=== PATIENT | female | born 1950 | race Caucasian/White ===

== ENCOUNTER 2018-05-28 14:31 | Inpatient (IN) | payer MEDICARE, BC ==
[~2018-05-28] VITALS: Ht 160 cm; Wt 95.3 kg
--- NOTE | ~2018-05-28 | RHP ---
PATIENT: ROSIBEL LUONG MEDICAL RECORD: [id number] ACCOUNT: [id number] LOCATION:[facility]1113 : 51 ADMISSION DATE: 05/28/18 REHABILITATION HISTORY AND PHYSICAL EXAMINATION POST ADMISSION PHYSICIAN EXAMINATION DATE OF ADMISSION: 05/28/2018 ADMITTING DIAGNOSIS: Critical illness neuropathy. HISTORY OF PRESENT ILLNESS: The patient is admitted to inpatient rehab with critical illness neuropathy. She is a morbidly obese 67-year-old female with a lengthy illness that began worsening with complaint of shortness of breath in February, requiring multiple acute hospital stays. Over a period of time she was in the SNF due to her weakness and inability to perform ADLs. She has progressed slowly with therapies and has believed that she is needing acute inpatient rehabilitation to regain her prior level of functioning. She is on home O2 at 2.5 to 3 liters via nasal cannula. She currently has a Bunn catheter and has not been attempted to be discontinued since her hospitalization in March per her . She was continent of bowel and bladder prior to this illness. She has new-onset bowel incontinence. She went out to the acute hospital last week with chest pain and pressure, but no findings. She is currently having a lot of pain in both her back and knees. Pain management will be addressed along with bowel and bladder program, all with her diabetes, her O2 needs, swelling, monitor her self-care deficits and mobility. She and her state that she normally stood up on her legs on 2 different days since her acute hospitalization back in February. Their goal was to get her back to where she can ambulate with a rolling walker and she was able to do previously, is very motivated and determined to return home with her . She is currently min to total assist for her ADLs and total assist for mobility. She has proximal muscle weakness. BARRIERS TO DISCHARGE: Include total assist. She is having self-care deficits. Currently on a Bunn catheter, new-onset bowel incontinence, increased pain and need for medical management. She and her plan for her to return home with close to her prior level of functioning as possible. COMORBIDITIES: In this patient include critical illness neuropathy, morbid obesity, encephalopathy, COPD, weakness, cognitive communication deficits, paroxysmal atrial fib, diabetes, hypertension, cerebral infarction, psychogenic nonepileptic seizure, asthma, hyperlipidemia, chest pain, histrionic personality disorder, anxiety and depression. PAST MEDICAL HISTORY: Significant for AFib, diabetes, hypertension, questionable CHF, COPD, CVA, asthma, chronic respiratory failure, hyperlipidemia, and anxiety. PAST SURGICAL HISTORY: Includes esophageal surgery, cholecystectomy and appendectomy. ALLERGIES: PENICILLIN, POTASSIUM, IODINE, CODEINE, DANDELION ROOT, DOXYCYCLINE, GARLIC, GENTAMICIN, IBUPROFEN, IODINE, MOLASSES, PEACH FLAVOR, PENICILLIN, PLAVIX, POTASSIUM, PROMETHAZINE, TETRACYCLINE, ULTRAM, WINTERGREEN, CLAMS, CORN SYRUP, GREEN PEPPERS, MUSHROOMS, ANY TYPE OF NECTARINE, ASPARTAME, BEEF, BETADINE, BLACK PEPPER BEADS AND CECLOR. HISTORY AND PHYSICAL [id number] ROSIBEL LUONG CURRENT MEDICATIONS: Include Mevacor 20 mg daily, vitamin D daily, hydrochlorothiazide 12.5 mg daily, lisinopril 10 mg daily, citalopram 20 mg daily, Senokot 1 tab daily, prednisone 5 mg daily, Multaq 400 mg daily, Mag-Ox 400 mg daily, Lantus 20 units daily, potassium 10 mEq b.i.d., Zofran 4 mg every 6 hours p.r.n., Ventolin 2 puffs every 6 hours p.r.n., Tylenol 500 mg every 6 hours, Remeron 15 mg at bedtime, Singulair 10 mg at bedtime and she is on a low-resistant sliding scale. HABITS: No alcohol or tobacco use. FAMILY HISTORY: Noncontributory. SOCIAL HISTORY: The patient hopes to return back home with her and get back to her prior level of functioning. REVIEW OF SYSTEMS: GENERAL: Does complain of weakness and fatigue. HEENT: Denies cold, cough, or congestion. CARDIOVASCULAR: Denies chest pain. PHYSICAL EXAMINATION: VITAL SIGNS: Stable, afebrile. GENERAL: A morbidly obese female, in no distress upon exam. HEENT: Normocephalic and atraumatic. Mucosa moist. NECK: Supple. No lymphadenopathy. LUNGS: Clear in upper aguirre. She does have decreased breath sounds in the bases. CARDIOVASCULAR: Has an irregular rate and rhythm. ABDOMEN: Benign. EXTREMITIES: No clubbing or cyanosis. NEUROLOGIC: She is noted to have some deficits. LABORATORY DATA: Her white count is 12.8, H&H of 13 and 40. Her platelet count is noted to be 262. Her MCV is 103.1. Her sodium is 136, potassium 4.6, BUN and creatinine of 21 and 0.7, blood sugar is noted to be 96. Her UA was cloudy. She has 2+ blood, positive nitrite and positive leukocyte esterase. Her urine culture has been set up. ASSESSMENT: This is a 67-year-old female patient admitted to rehab with a working diagnosis of critical illness neuropathy. The patient has potential to make improvement. We instituted the following multidisciplinary therapies include, but not limited to physical, occupational, respiratory, speech, nutritional services, prosthetics and orthotics. Given her complex medical condition and risk for more complications, rehabilitation services cannot be provided at a low level of care such as a skilled nurse facility. PLAN: 1. Admit to [facility] rehab for intensive inpatient therapy to include the following disciplines: A. Physical therapy to improve gait, all transfer skills and bed mobility to a modified independent level. B. Occupational therapy to a modified independent level. C. Case management to assist with discharge planning and placement options. D. Nutrition to assist with nutritional needs. E. Rehabilitation nursing to assist in monitoring the patient's underlying HISTORY AND PHYSICAL [id number] ROSIBEL LUONG medical conditions and to assist with any type of bowel or bladder management. 2. The patient's current medication and medical care will be continued. 3. The patient will be placed on standard fall precautions. 4. I am going to go ahead and treat her urine. 5. We will get updates frequently from our care team and see how she progresses. TRANSINT:[id number] Voice Confirmation ID: [id number] DOCUMENT ID: [id number] MIKKI notes whether there has been none or any medical/functional change since admission: - No change since prescreen. MIKKI attests patient continues to be appropriate for IRF: - Continues to be appropriate. PETRA WITT MD at 1951 CC: [id number] DICTATION DATE: 05/29/18 0856 KOSHER DIETARY SERVICE SUPERVISOR: 05/29/18 1016 ADM IN [facility] [address] [id number]
[2018-05-28 15:05] VITALS: BP 116/53; BMI 37.2
[2018-05-28] MEDS ORDERED: LOVASTATIN20 MG PO (16:34)
[2018-05-28] MEDS ORDERED: SINGULAIR10 MG PO (16:47)
[2018-05-28] MEDS ORDERED: REMERON15 MG PO (16:48)
[2018-05-28] MEDS ORDERED: CARDIZEM CD240 MG PO (16:50)
[2018-05-28] MEDS ORDERED: ZESTORETIC 10/11 TAB PO (16:51)
[2018-05-28] MEDS ORDERED: MAG-OX 400 MG400 MG (16:52)
[2018-05-28] MEDS ORDERED: MULTAQ400 MG PO (16:52)
[2018-05-28] MEDS ORDERED: PREDNISONE5 MG PO (16:53)
[2018-05-28] MEDS ORDERED: SENOKOT-S TABLE1 TAB PO (16:55)
[2018-05-28] MEDS ORDERED: VITAMIN D5000 UNIT (16:57)
[2018-05-28] MEDS ORDERED: ACETAMINOPHEN500 M1 PO (16:58)
[2018-05-28] MEDS ORDERED: PROAIR HFA8.5 GM INH (16:59)
[2018-05-28] MEDS ORDERED: ZOFRAN4 MG PO (17:00)
[2018-05-28] MEDS ORDERED: K-TAB10 MEQ (17:00)
[2018-05-28] MEDS ORDERED: CELEXA20 MG PO (17:01)
[2018-05-28] MEDS ORDERED: LANTUS SOL100 UNIT/1 SC (17:05)
[2018-05-28] MEDS ORDERED: NOVOLIN R100 U/ML (17:06)
[2018-05-28 19:00] VITALS: BP 124/55
[2018-05-29 01:40] VITALS: BP 165/76
[2018-05-29 02:56] LABS: APPEARANCE CLOUDY (CLEAR); BILIRUBIN NEGATIVE (NEGATIVE); COLOR YELLOW (YELLOW); GLUCOSE NEGATIVE (NEGATIVE); KETONE NEGATIVE (NEGATIVE); NITRITE POSITIVE (NEGATIVE); PROTEIN TRACE mg/dL (NEGATIVE); SPECIFIC GRAVITY 1.015 (1.005-1.020); UROBILINOGEN NORMAL (NORMAL)
[2018-05-29 02:57] LABS: BACTERIA MANY /hpf (NONE SEEN); EPITHELIAL CELLS RARE /hpf (0-5); WHITE CELLS - URINE >50 /hpf (0-5)
[2018-05-29 07:13] LABS: CALC OSMOLALITY 279 mosm/kg (275-300); CALCIUM 9.4 mg/dL (8.5-10.1); CARBON DIOXIDE 31.2 mmol/L (21.0-32.0); CHLORIDE - SERUM 100 mmol/L (98-107); CREATININE - SERUM 0.7 mg/dL (0.6-1.3); GLUCOSE 196 mg/dL (74-106); POTASSIUM - SERUM 4.6 mmol/L (3.5-5.1); PRO BNP 299 pg/mL (0-125); SODIUM 136 mmol/L (136-145); UREA NITROGEN 21 mg/dL (7-18); eGFR NON AFRICAN AMERICAN 89 mL/min (90-120)
[2018-05-29 07:28] LABS: HEMATOCRIT 40.4 % (36.0-48.0); HEMOGLOBIN 13.4 g/dL (12-16); LYMPHOCYTES 14.8 % (15-50); MCH 34.2 pg (26.0-34.0); MCHC 33.2 g/dL (31.0-37.0); MCV 103.1 fL (80.0-100.0); MEAN PLATELET VOLUME 8.6 fL (7.4-10.4); NEUTROPHILS 76.2 % (40-80); PLATELET COUNT 262 10x3/uL (130-400); RBC 3.92 10x6/uL (4.00-5.40); RDW 14.9 % (11.5-14.5); WBC 12.8 10x3/uL (4.8-10.8)
[2018-05-29 08:00] VITALS: BP 141/59
[2018-05-29 13:15] VITALS: Ht 160 cm; Wt 95.3 kg
[2018-05-29 19:00] VITALS: BP 113/59
[2018-05-30 11:22] VITALS: BP 127/58
[2018-05-30 22:35] VITALS: BP 124/78
[2018-05-31 15:55] VITALS: BP 163/77
[2018-05-31 20:27] VITALS: BP 138/77
[2018-06-01 06:24] LABS: BASOPHILS 0.3 % (0-2); EOSINOPHILS 4.2 % (0-7); HEMATOCRIT 44.6 % (36.0-48.0); HEMOGLOBIN 14.2 g/dL (12-16); IMMATURE GRANULOCYTES 0.4 % (0-5); LYMPHOCYTES 16.4 % (15-50); MCHC 31.8 g/dL (31.0-37.0); MCV 106.7 fL (80.0-100.0); MEAN PLATELET VOLUME 9.3 fL (7.4-10.4); NEUTROPHILS 68.7 % (40-80); PLATELET COUNT 266 10x3/uL (130-400); RBC 4.18 10x6/uL (4.00-5.40); RDW 15.2 % (11.5-14.5); WBC 11.9 10x3/uL (4.8-10.8)
[2018-06-01 06:34] LABS: CALC OSMOLALITY 288 mosm/kg (275-300); CALCIUM 9.1 mg/dL (8.5-10.1); CARBON DIOXIDE 34.4 mmol/L (21.0-32.0); CHLORIDE - SERUM 101 mmol/L (98-107); CREATININE - SERUM 0.8 mg/dL (0.6-1.3); GLUCOSE 202 mg/dL (74-106); POTASSIUM - SERUM 5.1 mmol/L (3.5-5.1); SODIUM 139 mmol/L (136-145); UREA NITROGEN 26 mg/dL (7-18); eGFR NON AFRICAN AMERICAN 76 mL/min (90-120)
[2018-06-01 07:48] VITALS: BP 154/80
[2018-06-01 19:00] VITALS: BP 119/72
[2018-06-02 08:57] VITALS: BP 155/69
[2018-06-02 19:00] VITALS: BP 115/61
[2018-06-03 08:00] VITALS: BP 155/67
== END 2018-06-03 17:21 | disposition short-term general hospital (02) | DRG 73 ==
LOC: D.REHAB 14:31
PROVIDERS: Emergency Medicine
DX: G62.81 Critical illness polyneuropathy (principal); G93.40 Encephalopathy, unspecified; Z66 Do not resuscitate; I63.9 Cerebral infarction, unspecified; E66.01 Morbid (severe) obesity due to excess calories; J44.9 Chronic obstructive pulmonary disease, unspecified; R53.1 Weakness; I48.0 Paroxysmal atrial fibrillation; E11.9 Type 2 diabetes mellitus without complications; I10 Essential (primary) hypertension; E78.5 Hyperlipidemia, unspecified; F41.8 Other specified anxiety disorders; R41.841 Cognitive communication deficit; R56.9 Unspecified convulsions; F60.4 Histrionic personality disorder

== ENCOUNTER 2018-06-03 16:06 | Inpatient (IN) | payer MEDICARE, BC ==
[~2018-06-03] VITALS: Ht 160 cm; Wt 98.2 kg
--- NOTE | ~2018-06-03 | PSY ---
PATIENT NAME:ROSIBEL LUONG MEDICAL RECORD: [id number] : 52 LOCATION:[facility] ADMISSION DATE: 06/03/18 ACCOUNT: [id number] PSYCHIATRIC EVALUATION DATE OF EVALUATION: 06/04/18 IDENTIFYING DATA: The patient is 67 years old and she is admitted to the hospital on a voluntary basis. CHIEF COMPLAINT: Suicidal statements. HISTORY OF PRESENT ILLNESS: The patient was admitted to the rehab unit about a week ago. She was there because of neuropathy and morbid obesity. She subsequently began making statements that she wanted to kill herself. When I went to see her yesterday on the rehab unit, which is just next door to the psychiatric unit, the nurse senior online marketing manager went into the room with me and her was there and she could not be aroused. She has not been given anything. She had been awake and talkative earlier and it was suspected that this was some type of behavioral thing she was doing. Rehab said they could not keep her on their unit because she made suicidal statements. For that reason, I had no alternative, but to admit her to the psychiatric unit. Today, she tells me that this is just a big misunderstanding that what she said about hurting herself was just out of frustration and that she really did not mean it. She endorses a lot of depressive symptoms, but says she wants to go home. She cannot go home because she cannot care for herself. She cannot go to rehab because she did not participate in therapy there for a week and she does not have any criteria to go to an inpatient hospital stay. I have told her I will have to refer her to a chcf and she said she is fine with that. PAST MEDICAL HISTORY: Significant for morbid obesity. She also has a history of diabetes, neuropathy associated with the diabetes, hypertension and congestive heart failure. PAST PSYCHIATRIC HISTORY: Denied by the patient. FAMILY PSYCHIATRIC HISTORY: Denied by the patient. ALLERGIES: EXTREMELY LONG WITH A COUPLE OF DOZEN ITEMS LISTED. I WILL REFER YOU TO THE MEDICAL RECORD, but PENICILLIN AND CODEINE ALONG WITH IODINE ARE THREE PRINCIPAL ITEMS. I STRONGLY SUSPECT THAT NOT ALL OF THESE ARE TRUE ALLERGIES AND PROBABLY MORE RELATED TO POOR TOLERANCE, BUT THAT IS NOT AN ISSUE, I CAN SORT OUT AT THIS TIME. CURRENT MEDICATIONS: Include albuterol, lisinopril, Celexa, Multaq, Cardizem, Zofran, Singulair, Tylenol. SOCIAL HISTORY: The patient is . She lives in [place] and is unemployed. She does have adult children. MENTAL STATUS EXAMINATION: The patient is awake, alert and oriented to person, place and somewhat to time and situation. Her mood is depressed. Her affect is constricted. Thought processes are circumstantial. Memory, concentration, and abstraction abilities are mildly impaired. She denies any active intent to harm herself or others. She denies any overt psychotic symptoms. ASSETS: Stable living environment. LIABILITIES: Limited insight. DIAGNOSTIC IMPRESSION: AXIS I: Major depression, moderate without psychotic features. AXIS II: Deferred. AXIS III: Diabetes, hypertension, obesity, neuropathy, congestive heart failure. AXIS IV: Moderate stressors. AXIS V: Global assessment of functioning is 40. PLAN: At this time, the patient is going to be treated for depression and I will assist her in being placed in a chcf. There is no doubt she made suicidal statements yesterday, it was made to several staff members and it is well documented. It will take some time to get her into the chcf and in the interim I am going to observe her for safety and we will treat her with antidepressant medications and other medications as circumstances may dictate. TRANSINT:[id number] Voice Confirmation ID: [id number] DOCUMENT ID: [id number] CANDIE KING MD at 1435 CC: [id number] DICTATION DATE: 06/04/18 1410 SAFETY REPRESENTATIVE: 06/04/18 1428 DIS IN 06/05/[id number] [place] [address]
--- NOTE | ~2018-06-03 | DS ---
PATIENT:ROSIBEL LUONG :52 MEDICAL RECORD: [id number] DISCHARGE SUMMARY ADMISSION DATE: 06/03/18 DISCHARGE DATE: 06/05/18 IDENTIFYING DATA: The patient is 67 years old and she was admitted to the hospital on a voluntary basis because of suicidal statements. The patient is morbidly obese and has neuropathy. She was a patient on the rehab unit, next door to the behavioral unit, and began making suicidal statements. She would not cooperate with an evaluation when I was consulted on her, so she was transferred to the behavioral unit. She immediately began explaining away what she had said and denying the accuracy of what was said and documented by the nursing staff. She was observed for suicidal thoughts. HOSPITAL COURSE: The patient was admitted to the hospital and fully evaluated from both medical, psychological, and social standpoint. She was treated with both memory enhancing and mood stabilizing medications and observed briefly and found not to be in acute danger. At her request, she was discharged from the hospital. DISCHARGE DIAGNOSES: AXIS I: Major depression, moderate, without psychotic features. AXIS II: Cluster B personality traits. AXIS III: Diabetes, hypertension, obesity, neuropathy, and congestive heart failure. AXIS IV: Moderate stressors. AXIS V: Global assessment of functioning is 45. PLAN: At the time of discharge, the patient was not acutely dangerous to herself or others. She had a depressed mood, but was taking medications for depression. She was scheduled for follow up with the [facility] in her hometown. Her long-term prognosis is guarded. TRANSINT:[id number] Voice Confirmation ID: [id number] DOCUMENT ID: [id number] CANDIE KING MD at 1324 CC: [id number] DICTATION DATE: 06/11/18 1329 DAIRY POWDER MIXER OPERATOR: 06/11/18 1336 DIS IN 06/05/[id number] [place] [address]
[~2018-06-03 16:06] MED LIST: ACETAMINOPHEN500 M1 PO; CARDIZEM CD240 MG PO; CELEXA20 MG PO; K-TAB10 MEQ; LANTUS SOL100 UNIT/1 SC; LOVASTATIN20 MG PO; MAG-OX 400 MG400 MG; MULTAQ400 MG PO; NOVOLIN R100 U/ML; PREDNISONE5 MG PO; PROAIR HFA8.5 GM INH; REMERON15 MG PO; SENOKOT-S TABLE1 TAB PO; SINGULAIR10 MG PO; VITAMIN D5000 UNIT; ZESTORETIC 10/11 TAB PO; ZOFRAN4 MG PO
[2018-06-03 20:00] VITALS: BP 158/62
[2018-06-03 22:33] LABS: APPEARANCE CLEAR (CLEAR); COLOR YELLOW (YELLOW); GLUCOSE 250 mg/dL (NEGATIVE); NITRITE NEGATIVE (NEGATIVE); PROTEIN NEGATIVE (NEGATIVE)
[2018-06-03 22:34] LABS: BILIRUBIN NEGATIVE (NEGATIVE); KETONE NEGATIVE (NEGATIVE); UROBILINOGEN NORMAL (NORMAL)
[2018-06-03 22:35] LABS: BACTERIA FEW /hpf (NONE SEEN); WHITE CELLS - URINE 0-5 /hpf (0-5)
[2018-06-03 22:38] LABS: UDS - AMPHET NEGATIVE QUAL (NEGATIVE); UDS - BARB NEGATIVE QUAL (NEGATIVE); UDS - BENZO NEGATIVE QUAL (NEGATIVE); UDS - COCAINE NEGATIVE QUAL (NEGATIVE); UDS - OPIATE POSITIVE QUAL (NEGATIVE); UDS - PCP NEGATIVE QUAL (NEGATIVE); UDS - THC NEGATIVE QUAL (NEGATIVE)
[2018-06-04 07:04] VITALS: BP 158/62; BMI 38.3
[2018-06-04 07:48] LABS: BASOPHILS 0.4 % (0-2); EOSINOPHILS 2.9 % (0-7); HEMATOCRIT 40.9 % (36.0-48.0); IMMATURE GRANULOCYTES 0.4 % (0-5); LYMPHOCYTES 18.5 % (15-50); MCH 33.5 pg (26.0-34.0); MCHC 31.8 g/dL (31.0-37.0); MCV 105.4 fL (80.0-100.0); MEAN PLATELET VOLUME 9.2 fL (7.4-10.4); MONOCYTES 8.5 % (2-11); NEUTROPHILS 69.3 % (40-80); PLATELET COUNT 234 10x3/uL (130-400); RBC 3.88 10x6/uL (4.00-5.40); RDW 14.8 % (11.5-14.5); WBC 10.7 10x3/uL (4.8-10.8)
[2018-06-04 08:32] LABS: ALBUMIN 2.5 g/dL (3.4-5.0); BILIRUBIN - TOTAL 0.28 mg/dL (0.2-1.3); CHOL - HDL RATIO 3.1 ratio (2.3-4.1); CREATININE - SERUM 0.9 mg/dL (0.6-1.3); LDL-HDL RATIO 1.7 ratio (1.5-3.5); POTASSIUM - SERUM 4.7 mmol/L (3.5-5.1); THYROID STIMULATING HORMONE 4.32 uIU/mL (0.36-3.74)
[2018-06-04 08:44] LABS: CARBON DIOXIDE 30.7 mmol/L (21.0-32.0)
[2018-06-04 09:56] VITALS: BMI 38.2
[2018-06-04 10:52] VITALS: BP 153/72
[2018-06-04 15:37] VITALS: Ht 160 cm; Wt 98.2 kg
[2018-06-04 19:37] VITALS: BP 121/56
[2018-06-05 06:15] LABS: RAPID PLASMA REAGIN Non Reactive (Non Reactive)
[2018-06-05 07:29] LABS: VITAMIN D 25 HYDROXY 86.1 ng/mL (30.0-100.0)
[2018-06-05 09:16] LABS: FOLATE (FOLIC ACID) - SERUM 17.3 ng/mL (>3.0)
[2018-06-05 09:58] VITALS: BP 113/65
[2018-06-05] MEDS ORDERED: HCTZ25 MG PO (10:40)
== END 2018-06-05 13:08 | disposition home or self-care (01) | DRG 885 ==
LOC: D.PSYCH 16:06
PROVIDERS: Psychiatry & Neurology Psychiatry
DX: F32.1 Major depressive disorder, single episode, moderate (principal); R45.851 Suicidal ideations; E11.40 Type 2 diabetes mellitus with diabetic neuropathy, unspecified; I11.0 Hypertensive heart disease with heart failure; I50.9 Heart failure, unspecified; E66.9 Obesity, unspecified; Z68.38 Body mass index [BMI] 38.0-38.9, adult